=== PATIENT | male | born 1990 | race African-American/Black ===

== ENCOUNTER 2017-03-13 18:31 | Emergency (ER) | payer OTHER ==
[~2017-03-13] VITALS: Ht 172.7 cm; Wt 79.5 kg
[2017-03-13 18:50] VITALS: BP 132/77
[2017-03-13] MEDS ORDERED: IBUPROFEN 800 MG TABLET PO ONE (19:00)
== END 2017-03-13 19:44 | disposition home or self-care (01) ==
LOC: EMS 18:33
DX: S60.151A Contusion of right little finger with damage to nail, initial encounter (principal); W20.8XXA Other cause of strike by thrown, projected or falling object, initial encounter; Y93.89 Activity, other specified; Y92.89 Other specified places as the place of occurrence of the external cause; Y99.8 Other external cause status
CPT/HCPCS: 99284

== ENCOUNTER 2018-01-06 08:15 | Emergency (ER) | payer MEDICAID, OTHER ==
[~2018-01-06] VITALS: Ht 165.1 cm; Wt 70.5 kg
[2018-01-06 09:08] VITALS: BP 152/67
== END 2018-01-06 09:30 | disposition home or self-care (01) ==
LOC: EMS 08:16
DX: K29.70 Gastritis, unspecified, without bleeding (principal); F12.90 Cannabis use, unspecified, uncomplicated; F17.210 Nicotine dependence, cigarettes, uncomplicated
CPT/HCPCS: 99283